=== PATIENT | female | born 1965 | race Caucasian/White ===

== ENCOUNTER 2016-06-05 09:22 | Day surgery (SDC) | payer BC, OTHER ==
[2016-06-05 11:18] VITALS: O2SAT 97
[2016-06-05 11:28] VITALS: BP 117/77; PULSE 69; RESP 18; TEMP 97.6
== END 2016-06-05 11:58 | disposition home or self-care (01) | DRG 951 ==
LOC: SURG 09:22
PROVIDERS: ATTEND Surgery
DX: Z12.11 Encounter for screening for malignant neoplasm of colon (principal); D12.3 Benign neoplasm of transverse colon; Z86.010 Personal history of colon polyps; Z80.0 Family history of malignant neoplasm of digestive organs
CPT/HCPCS: J2001; J2704

== ENCOUNTER 2017-05-14 11:37 | Outpatient (CLI) | payer BC, OTHER ==
[2015-08-19 11:32] VITALS: O2SAT 98
== END 2017-05-14 11:38 | disposition home or self-care (01) ==
LOC: CONVCARE 11:37
PROVIDERS: ATTEND Orthopaedic Surgery
DX: M22.8X2 Other disorders of patella, left knee (principal); M25.562 Pain in left knee
CPT/HCPCS: 73562

== ENCOUNTER 2017-11-08 14:32 | Outpatient (CLI) | payer BC, OTHER ==
[2015-08-19 11:32] VITALS: O2SAT 98
== END 2017-11-08 14:33 | disposition home or self-care (01) ==
LOC: CONVCARE 14:32
PROVIDERS: ATTEND Orthopaedic Surgery
DX: M25.561 Pain in right knee (principal)
CPT/HCPCS: 73700

== ENCOUNTER 2017-12-06 13:57 | Outpatient (CLI) | payer OTHER ==
[2015-08-19 11:32] VITALS: O2SAT 98
== END 2017-12-06 13:58 | disposition home or self-care (01) | DRG 566 ==
LOC: CONVCARE 13:57
PROVIDERS: ATTEND Orthopaedic Surgery
DX: S72.431 Displaced fracture of medial condyle of right femur (principal); M25.561 Pain in right knee
CPT/HCPCS: 73564

== ENCOUNTER 2018-01-17 12:59 | Outpatient (CLI) | payer BC, OTHER ==
[2015-08-19 11:32] VITALS: O2SAT 98
== END 2018-01-17 13:00 | disposition home or self-care (01) | DRG 561 ==
LOC: CONVCARE 12:59
PROVIDERS: ATTEND Orthopaedic Surgery
DX: S82.131D Displaced fracture of medial condyle of right tibia, subsequent encounter for closed fracture with routine healing (principal)
CPT/HCPCS: 73564